=== PATIENT | male | born 1975 | race Hispanic/Latino ===

== ENCOUNTER 2016-07-19 16:29 | Emergency (ER) ==
[2016-07-19 17:08] VITALS: BP 154/097
[2016-07-19] MEDS ORDERED: DIPHTHERIA/TETANUS ADULT IM ONE (17:28)
--- NOTE | 2016-07-19 17:35 | PROVIDER DOCUMENTATION ---
HPI-Animal/Snake Bite Injury - General Chief Complaint: Animal Bite Stated Complaint: ANIMAL BITE Time Seen by Provider: 07/19/16 17:27 Patient arrived via EMS?: No Source: patient Allergies/Adverse Reactions: Patient Allergies Allergy/AdvReac Type Severity Reaction Status Date / Time No Known Allergies Allergy Verified 07/19/16 17:08 - History of Present Illness-Bite Injuries Nature of Presenting Problem: REPORTS TO ER WITH CC OF DOG BITE THIS AFTERNOON WHILE AT WORK REPORTS POSS PIT BULL UNKNOWN IF SHOTS UP TO DATE BITE PT LEFT DORSAL HAND OBVIOUS WOUNDS NOT ACTIVELY BLEEDING AT THIS TIME.PT IS NOT UP TO DATE ON TETANUS. Onset/Duration: this evening Timing: reports: still present Locality of Occurance: Work Severity: mild Quality: painful Loss of Consciousness: no loss of consciousness Remembers:: injury, coming to hospital Similar Symptoms Previously?: No Recently seen or treated by another doctor?: No - Animal Bite Bite Injury Location: reports: hands Animal:: reports: dog Appearance of Animal: appeared well Animal's Immunization Status: unknown Observation/Capture: animal is known/can be observed 10 days Context of Attack: reports: "unprovoked" attack Severity of Bite Injury: bitten Review of Systems - Adult - REVIEW OF SYSTEMS - ADULT Constitutional: denies: chills, fever, fatique Eyes: reports: no symptoms reported Ears, Nose, Mouth & Throat: denies: ear discharge, ear pain, sinus problem, throat pain Cardiovascular: denies: chest pain, irregular heart rate, orthopnea Respiratory: reports: no symptoms reported Gastrointestinal: reports: no symptoms reported Genitourinary: reports: no symptoms reported Musculoskeletal: reports: no symptoms reported Integumentary: reports: see HPI Neurological: reports: no symptoms reported Psychiatric: reports: no symptoms reported Endocrine: reports: no symptoms reported Hematologic/Lymphatic: reports: no symptoms reported Allergic/Immunologic: reports: no symptoms reported All Other Systems: Reviewed and Negative Past History - Adult - PAST MEDICAL HISTORY-ADULT Review of Records: reports: Nursing Assessment Review Major Childhood Illnesses: reports: denies history Cardiovascular: reports: denies history Respiratory: reports: denies history - IMMUNIZATION STATUS Childhood Immunizations: See Nurse Assessment Flu Vaccine: See Nurse Assessment - FAMILY HISTORY Family History: reviewed, not pertinent - SOCIAL HISTORY Smoking: denies Substance Use: alcohol Physical Exam-General - PHYSICAL EXAM-ADULT Initial Vital Signs Reviewed: Yes - CONSTITUTIONAL General Appearance: appears well, alert, no apparent distress - EYES Eyes: PERRL/EOMI, pink conjunctivae - HEAD, EARS, NOSE, MOUTH & THROAT HENMT: normocephalic/atraumatic, moist mucous membranes, normal ENT inspection - NECK Neck: non-tender, full range of motion, supple, normal inspection - RESPIRATORY Respiratory: chest non-tender, lungs clear, normal breath sounds, no pleuratic chest pain, no respiratory distress, no accessory muscle use - CARDIOVASCULAR Cardiovascular: normal peripheral pulses, regular rate, rhythm, no edema, no gallop - GASTROINTESTINAL (ABDOMEN) Abdominal Exam: normal bowel sounds, non tender, soft, no organomegaly, no pulsatile mass - LYMPHATIC Lymphatic: no adenopathy - MUSCULOSKELETAL Back Exam: normal inspection, no CVA tenderness, no vertebral tenderness Extremity: normal range of motion, non-tender, normal gait - SKIN Integumentary: normal color, normal turgor, warm/dry, other (1CM (2) PUNCTURE WOUNDS LEFT DORSAL HAND; 2 (0.5 CM) PALM OF LEFT HAND NOT ACTIVELY BLEEDING) - NEUROLOGIC Neurologic: grossly normal, no motor/sensory deficits - PSYCHIATRIC Psych/Mental Status: normal mood/affect, normal thought content, normal thought process, oriented x 3 Progress - PLAN OF CARE/RESULTS Progress/Plan/Lab Results: Orders Category Date Time Status Wound Care DIRECTED Care 07/19/16 17:30 Active HAND COMPLETE LEFT [RAD] Stat Exams 07/19/16 17:34 Ordered Diphtheria/Tetanus Adult Med 07/19/16 17:28 Discontinued 0.5 ml IM .ONCE ONE Vital Signs - 24 hr 07/19/16 17:04 Temperature 97.6 F Pulse Rate 76 Respiratory 16 Rate Blood Pressure 154/097 O2 Sat by Pulse 98 Oximetry - XRAY 1 XRAY: Left XRAY Study: Hand Impression: Normal XRAY Interpretation: NO FX Departure - Departure Time of Disposition Order: 17:35 DIAGNOSIS: Dog bite Qualifiers: Encounter type: initial encounter Qualified Code(s): W54.0XXA - Bitten by dog, initial encounter Disposition: HOME 01 Certified Medical Emergency: Emergent Condition: Stable Additional Instructions: Keep area clean and dry Polysporin to affected area twice daily ED Follow Up Instructions: You have been treated by a care provider in the Emergency Department. These instructions are being provided to you so you can have an understanding of how to care for yourself upon discharge. Upon discharge from the Emergency Department, you are responsible for making arrangements for follow-up care by a physician of your choice. Take all prescribed medications as directed. Return to the Emergency Department immediately for any new or worsening symptoms. You may call the Physician Referral phone number at [phone] to obtain a list of Physicians who are taking new patients. Prescriptions: Amoxicillin/Pot Clavulanate [Augmentin] 875 mg PO Q12HR #20 tablet Ibuprofen [Motrin] 600 mg PO TID #20 tablet Referrals: Jonathan Hernandez MD [STAFF PHYSICIAN] - None,PCP [Primary Care Provider] - Forms: Return to School/Parent Work Instructions: Amoxicillin capsules or tablets, Ibuprofen tablets and capsules, Animal Bite Attestation - Scribe Verification/Attestation Scribe:: Lyndon Matthews Acting as Scribe for:: Taylor Guerrero Scribe documention review:: This chart was documented by a scribe and accurately reflects the service the provider performed and the decisions made by the provider. - Physician/ Mid-level Attestation Patient care was provided by Mid-level provider (PATTERN CARRIER/PA):: Yes Mid-level provider:: Taylor Guerrero Mid-level documentation review:: The Mid-level provider documentation, treatment plan and medical decision making was reviewed by the physician who agrees with all treatment and medical decision making by the [facility].
[2016-07-19] MEDS ORDERED: ROCEPHIN IM ONE (18:07)
[2016-07-19] MEDS ORDERED: XYLOCAINE-MPF 1% INJ ONE (18:07)
--- NOTE | 2016-07-20 08:41 | Diag Imaging Result Document ---
PROCEDURE NAME: HAND COMPLETE LEFT - 07/19/2016 LEFT HAND, THREE VIEWS: INDICATION: Dog bite. FINDINGS: There is a soft tissue defect consistent with a laceration involving the dorsal and medial aspect of the hand. There is mild deformity about the base of the fifth metacarpal which appears chronic. There are calcific densities projecting over the ulnato- carpal joint which are also likely chronic. No acute fracture or dislocation is identified. IMPRESSION: 1. Soft tissue laceration. 2. No acute bony abnormalities appreciated. [facility]
== END 2016-07-19 18:32 | disposition home or self-care (01) ==
LOC: P.ED 16:29
DX: S61.432A Puncture wound without foreign body of left hand, initial encounter (principal); W54.0XXA Bitten by dog, initial encounter; Z23 Encounter for immunization
CPT/HCPCS: 90471; 90714; 96372; J0696